=== PATIENT | female | born 1985 | race Two or more races ===

== ENCOUNTER 2020-04-03 16:03 | Observation (INO) | payer MEDICAID, OTHER ==
[~2020-04-03] VITALS: Ht 154.9 cm; Wt 75.4 kg
[2020-04-03] MEDS ORDERED: KETOROLAC 30 MG/1 ML IM ONE (16:30)
[2020-04-03 16:54] LABS: BASOPHILS % (AUTO) 0 % (0-1); EOSINOPHILS # (AUTO) 0.07 x10^3/uL (0-0.4); EOSINOPHILS % (AUTO) 1 % (1-7); LYMPHOCYTES # (AUTO) 0.64 x10^3/uL (1-3.4); LYMPHOCYTES % (AUTO) 6 % (22-44); MD NO; MEAN CORPUSCULAR HEMOGLOBIN 29.4 pg (27.0-34.8); MEAN CORPUSCULAR VOLUME 89.2 fL (80-100); MEAN PLATELET VOLUME 8.5 fL (7.4-10.4); MONOCYTES # (AUTO) 0.15 x10^3/uL (0.2-0.8); MONOCYTES % (AUTO) 1 % (2-9); NEUTROPHILS # (AUTO) 10.34 x10^3/uL (1.8-6.8); NEUTROPHILS % (AUTO) 92 % (42-75); PLATELET COUNT 266 x10^3/uL (130-400); RED BLOOD COUNT 5.44 x10^6/uL (3.82-5.3); RED CELL DISTRIBUTION WIDTH 13.1 % (9.6-15.2)
[2020-04-03 17:00] LABS: ALANINE AMINOTRANSFERASE 20 U/L (12-78); ALBUMIN 4.2 g/dL (3.4-5.0); ANION GAP 6 mmol/L (5-15); CALCIUM 9.8 mg/dL (8.5-10.1); CHLORIDE 104 mmol/L (98-107)
[2020-04-03 17:05] LABS: ALKALINE PHOSPHATASE 70 U/L (45-117); BILIRUBIN,TOTAL 0.5 mg/dL (0.2-1.0); CREATININE 1.29 mg/dL (0.55-1.02); TOTAL PROTEIN 8.6 g/dL (6.4-8.2)
[2020-04-03 17:08] LABS: MICROSCOPIC INDICATED
[2020-04-03] MEDS ORDERED: KETOROLAC 60 MG/2 ML ONE (17:16)
[2020-04-03] MEDS ORDERED: SODIUM CHLORIDE 0.9% 1,000 ML IV ONE (17:47)
[2020-04-03] MEDS ORDERED: SODIUM CHLORIDE FLUSH 10ML SYR IVF ONE (18:00)
[2020-04-03] MEDS ORDERED: ONDANSETRON 2MG/ML, 2ML IVPush ONE (18:00)
[2020-04-03] MEDS ORDERED: CEFTRIAXONE PMX 1GM/50ML 50 ML IV ONE (18:00)
[2020-04-03] MEDS ORDERED: MORPHINE SULFATE 4 MG/ML, 1ML IVPush PRN (18:00)
[2020-04-03] MEDS ORDERED: CEFTRIAXONE PMX 1GM/50ML 50 ML ONE (18:22)
[2020-04-03] MEDS ORDERED: ONDANSETRON 2MG/ML, 2ML ONE ×2 (18:23→19:31)
[2020-04-03] MEDS ORDERED: MORPHINE SULFATE 4 MG/ML, 1ML ONE (18:23)
--- NOTE | 2020-04-03 18:37 | NUR ---
PT UPDATED ON PLAN OF CARE. ERP AT BEDSIDE FOR RAPID COVID TEST COLLECTION. PT MEDICATED PER MAR. INSTRUCTED TO STRIP ALL CLOTHING AND JEWELRY ITEMS OFF, BESIDES GOWN AND MEDICAL EQUIPMENT, PROVIDED WITH A CUP FOR HER JEWELRY AND A BAG FOR HER BELONGINGS. BOYFRIEND AT BEDSIDE TO TAKE ITEMS HOME WITH HIM. REPORT TO OR, OR STATES THEY WILL BE DOWN TO GET PATIENT SHORTLY. PT DENIES ANY NEEDS, CALL LIGHT IN REACH.
[2020-04-03] MEDS ORDERED: CHLORHEXIDINE 15 ML UDC ONE (18:43)
[2020-04-03] MEDS ORDERED: SODIUM CHLORIDE 0.9% 1,000 ML IV SCH (18:51)
[2020-04-03] MEDS ORDERED: FENTANYL PF 100 MCG/2ML ONE ×2 (18:52→19:58)
[2020-04-03] MEDS ORDERED: MIDAZOLAM 1 MG/ML, 2ML ONE (18:52)
[2020-04-03] MEDS ORDERED: FENTANYL PF 100 MCG/2ML IV PRN (19:00)
[2020-04-03] MEDS ORDERED: hydrALAzine 20 MG/ML, 1ML IV PRN (19:00)
[2020-04-03] MEDS ORDERED: HALOPERIDOL 5 MG/ML IV PRN (19:00)
[2020-04-03] MEDS ORDERED: ZOLPIDEM 5MG TABLET PO PRN (19:00)
[2020-04-03] MEDS ORDERED: DIPHENHYDRAMINE 50 MG/ML, 1ML IVPush PRN (19:00)
[2020-04-03] MEDS ORDERED: DOCUSATE 100 MG CAPSULE PO PRN (19:00)
[2020-04-03] MEDS ORDERED: LABETALOL 5MG/ML, 20ML IV PRN (19:00)
[2020-04-03] MEDS ORDERED: hydrALAzine 20 MG/ML, 1ML IVPush PRN (19:00)
[2020-04-03] MEDS ORDERED: ONDANSETRON 2MG/ML, 2ML IVPush PRN (19:00)
[2020-04-03] MEDS ORDERED: HYDROmorphone 1 MG/ML, 1ML INJ IVPush PRN (19:00)
[2020-04-03] MEDS ORDERED: OXYcodone 5 MG/5 ML ORAL.SOL UDC PO PRN (19:00)
[2020-04-03] MEDS ORDERED: CYCLOBENZAPRINE 10 MG TABLET PO PRN (19:00)
[2020-04-03] MEDS ORDERED: MEPERIDINE/PF 25MG/0.5ML IVPush PRN (19:00)
[2020-04-03] MEDS ORDERED: PROMETHAZINE 25 MG/ML, 1ML IVPush PRN (19:00)
[2020-04-03] MEDS ORDERED: DEXAMETHASONE 4 MG/ML, 1ML ONE (19:31)
[2020-04-03] MEDS ORDERED: PROPOFOL 10 MG/ML, 20ML ONE (19:31)
[2020-04-03] MEDS ORDERED: CEFAZOLIN 1,000 MG ONE (19:31)
[2020-04-03] MEDS ORDERED: OXYcodone 5 MG/5 ML ORAL.SOL UDC ONE (19:58)
[2020-04-03] MEDS: morphine SULFATE 10 MG/ML, 1ML IVPush PRN (22:18)
[2020-04-03 23:37] VITALS: BP 130/75
[2020-04-04] MEDS: morphine SULFATE 10 MG/ML, 1ML IVPush PRN ×3 (01:02→07:37)
[2020-04-04 03:54] VITALS: BP 99/62
[2020-04-04 05:23] LABS: ANION GAP 6 mmol/L (5-15); CALCIUM 8.8 mg/dL (8.5-10.1); CHLORIDE 109 mmol/L (98-107); CREATININE 1.23 mg/dL (0.55-1.02)
[2020-04-04 05:33] LABS: MEAN CORPUSCULAR HEMOGLOBIN 29.5 pg (27.0-34.8); MEAN CORPUSCULAR HGB CONC 33.1 g/dL (32.4-35.8); MEAN CORPUSCULAR VOLUME 88.9 fL (80-100); MEAN PLATELET VOLUME 8.7 fL (7.4-10.4); PLATELET COUNT 254 x10^3/uL (130-400); RED BLOOD COUNT 4.77 x10^6/uL (3.82-5.3); RED CELL DISTRIBUTION WIDTH 13.5 % (9.6-15.2)
[2020-04-04 06:05] LABS: MD YES
[2020-04-04 06:07] LABS: <PLATELET ESTIMATE> ADEQUATE; <PLT MORPHOLOGY> NORMAL PLT MORPH; <RBC MORPHOLOGY> NORMAL; BAND#(MANUAL) 1.09 x10^3/uL; BANDS%(MANUAL) 7 % (0-7); LYMPH#(MANUAL) 0.47 x10^3/uL (1-3.4); LYMPHS% (MANUAL) 3 % (22-44); MONOS#(MANUAL) 0.31 x10^3/uL (0.3-2.7); MONOS% (MANUAL) 2 % (2-9); SEG#(MANUAL) 13.73 x10^3/uL (1.8-6.8); SEGS% (MANUAL) 88 % (42-75)
[2020-04-04 07:14] VITALS: BP 112/68
[2020-04-04] MEDS: OXYcodone IR 5MG TABLET PO PRN ×2 (10:09→16:15)
[2020-04-04] MEDS ORDERED: CEFD300C37 PO (14:06)
[2020-04-04] MEDS ORDERED: OXYC5TAB2 PEG (15:58)
[2020-04-04] MEDS ORDERED: CEFTRIAXONE PMX 1GM/50ML 50 ML IV SCH (18:00)
== END 2020-04-04 16:30 | disposition home or self-care (01) ==
LOC: OR 18:21 → EDIP 18:22 → INTOOBSV 18:22 → OR 18:44 → 4NE 20:40 → DCLOUNGE 04-04 16:21
PROVIDERS: ADMIT Internal Medicine; ATTEND Family Medicine
DX: N13.6 Pyonephrosis (principal); Z20.828 Contact with and (suspected) exposure to other viral communicable diseases; N20.2 Calculus of kidney with calculus of ureter; N39.0 Urinary tract infection, site not specified; G43.909 Migraine, unspecified, not intractable, without status migrainosus; D72.829 Elevated white blood cell count, unspecified; N17.9 Acute kidney failure, unspecified; E86.0 Dehydration; E66.9 Obesity, unspecified; R50.9 Fever, unspecified; Z79.899 Other long term (current) drug therapy; Z87.442 Personal history of urinary calculi; Z68.30 Body mass index [BMI] 30.0-30.9, adult; Z87.891 Personal history of nicotine dependence
CPT/HCPCS: 36415; 52005; 74018; 74176; 76000; 80048; 80053; 81001; 84703; 85025; 87077; 87086; 87186; 87635; 96361; 96365; 96372; 96375; 96376; 99285; C1769; C2617; G0378; J0696; J1100; J1885; J2250; J2270; J2405; J2704; J3010; J7030; J0690

== ENCOUNTER 2020-05-24 06:36 | Inpatient (IN) | payer MEDICAID ==
[~2020-05-24] VITALS: Ht 154.9 cm; Wt 77.8 kg
[~2020-05-24 06:36] MED LIST: CEFD300C37 PO; OXYC5TAB2 PEG
[2020-05-24] MEDS ORDERED: ONDANSETRON 2MG/ML, 2ML ONE ×2 (07:06→09:17)
[2020-05-24] MEDS ORDERED: KETOROLAC 30 MG/1 ML ONE (07:06)
--- NOTE | 2020-05-24 07:29 | NUR ---
PT AMBULATORY TO ROOM 17 W/ C/O R SIDE FLANK PAIN STARTED YESTERDAY AFTERNOON. PT STATES SHE HAS HX KIDNEY STONES W/ CURRENT STENT PLACEMENT. PT STATES SHE WAS GOING TO HAVE A PROCEDURE DONE FOR STONES ONCE HER INSURANCE KICKS IN FROM WORK. PT RESTING ON GURNEY. MEDICATED PER NOV. VSS.
[2020-05-24] MEDS ORDERED: ONDANSETRON 2MG/ML, 2ML IVPush ONE ×2 (07:30→09:00)
[2020-05-24] MEDS ORDERED: SODIUM CHLORIDE FLUSH 10ML SYR IVF ONE (07:30)
[2020-05-24] MEDS ORDERED: KETOROLAC 30 MG/1 ML IVPush ONE (07:30)
[2020-05-24 07:40] LABS: MEAN CORPUSCULAR HEMOGLOBIN 28.6 pg (27.0-34.8); MEAN CORPUSCULAR HGB CONC 32.6 g/dL (32.4-35.8); MEAN CORPUSCULAR VOLUME 87.7 fL (80-100); MEAN PLATELET VOLUME 8.1 fL (7.4-10.4); PLATELET COUNT 271 x10^3/uL (130-400); RED BLOOD COUNT 4.88 x10^6/uL (3.82-5.3); RED CELL DISTRIBUTION WIDTH 13.4 % (9.6-15.2)
[2020-05-24 07:45] LABS: MICROSCOPIC AUTO
[2020-05-24 07:52] LABS: ALBUMIN 3.6 g/dL (3.4-5.0); ANION GAP 8 mmol/L (5-15); CALCIUM 9.3 mg/dL (8.5-10.1); CHLORIDE 107 mmol/L (98-107); CREATININE 1.15 mg/dL (0.55-1.02)
[2020-05-24] MEDS ORDERED: MORPHINE SULFATE 4 MG/ML, 1ML ONE ×2 (08:12→09:17)
[2020-05-24] MEDS ORDERED: CEFTRIAXONE PMX 1GM/50ML 50 ML ONE (08:12)
[2020-05-24] MEDS: MORPHINE SULFATE 4 MG/ML, 1ML IVPush PRN ×2 (08:17→09:19)
--- NOTE | 2020-05-24 08:20 | NUR ---
BC X 2 DRAWN PRIOR TO START OF IV ABX.
[2020-05-24 08:23] LABS: MD YES
[2020-05-24 08:24] LABS: <PLATELET ESTIMATE> ADEQUATE; <PLT MORPHOLOGY> NORMAL PLT MORPH; <RBC MORPHOLOGY> NORMAL; BAND#(MANUAL) 1.75 x10^3/uL; BANDS%(MANUAL) 10 % (0-7); LYMPH#(MANUAL) 0.35 x10^3/uL (1-3.4); LYMPHS% (MANUAL) 2 % (22-44); MONOS#(MANUAL) 0.88 x10^3/uL (0.3-2.7); MONOS% (MANUAL) 5 % (2-9); SEG#(MANUAL) 14.53 x10^3/uL (1.8-6.8); SEGS% (MANUAL) 83 % (42-75)
[2020-05-24] MEDS ORDERED: TAMS-11 PO (08:24)
[2020-05-24] MEDS ORDERED: OXYB5TAB10 PO (08:24)
[2020-05-24] MEDS ORDERED: SODIUM CHLORIDE 0.9% 1,000ML IVBOLUS ONE (08:30)
--- NOTE | 2020-05-24 08:53 | NUR ---
PT CHART REVIEWED AND PLACED FOR RECHECK.
[2020-05-24] MEDS ORDERED: CEFTRIAXONE PMX 1GM/50ML 50 ML IV ONE ×2 (09:00→22:00)
--- NOTE | 2020-05-24 09:12 | NUR ---
PT RESTING ON ESTEFANI. KATLYN. VSS. STATES PAIN IMPROVED AFTER MEDICATED PER NOV.
--- NOTE | 2020-05-24 09:22 | NUR ---
PT MEDICATED PER EMAR. PT TOLERATED WELL.
--- NOTE | 2020-05-24 09:54 | NUR ---
REPORT GIVEN TO SHAWN CHAN.
--- NOTE | 2020-05-24 09:58 | NUR ---
PT REPORT FROM SHAWN WATERS. PT CARE TO BE ASSUMED.
--- NOTE | 2020-05-24 09:58 | NUR ---
TO CT PER ESTEFANI
--- NOTE | 2020-05-24 10:41 | NUR ---
PT REPORT TO SHAWN JUAN FOR ROOM 336.
[2020-05-24] MEDS: OXYcodone/APAP 5/325MG TABLET PO PRN ×2 (11:47→23:16)
[2020-05-24] MEDS ORDERED: hydrALAzine 20 MG/ML, 1ML IVPush PRN (12:00)
[2020-05-24] MEDS ORDERED: SODIUM CHLORIDE 0.9% 1,000 ML IV ONE (12:00)
[2020-05-24] MEDS ORDERED: LABETALOL 5MG/ML, 20ML IVPush PRN (12:00)
[2020-05-24] MEDS ORDERED: OXYcodone/APAP 5/325MG TABLET PO PRN (12:00)
[2020-05-24] MEDS ORDERED: PROMETHAZINE 25 MG/ML, 1ML IM PRN (12:00)
[2020-05-24] MEDS: HEPARIN 5,000 UNITS/ML, 1ML SQ SCH ×2 (12:00→20:00)
[2020-05-24 12:24] VITALS: BP 132/82
[2020-05-24] MEDS ORDERED: CEFTRIAXONE PMX 1GM/50ML 50 ML IV SCH (12:30)
[2020-05-24] MEDS: SODIUM CHLORIDE 0.9% 1,000 ML IV SCH (12:50)
[2020-05-24] MEDS: ACETAMINOPHEN 325 MG TABLET PO PRN (13:05)
[2020-05-24] MEDS: morphine SULFATE 10 MG/ML, 1ML IVPush PRN ×2 (13:47→22:08)
[2020-05-24 18:59] VITALS: BP 131/79
[2020-05-24] MEDS: OXYBUTYNIN CHLORIDE 5 MG TABLET PO SCH (22:08)
[2020-05-25 00:36] VITALS: BP 118/83
[2020-05-25] MEDS: SODIUM CHLORIDE 0.9% 1,000 ML IV SCH ×4 (01:00→22:27)
[2020-05-25] MEDS: HEPARIN 5,000 UNITS/ML, 1ML SQ SCH ×3 (02:58→20:00)
[2020-05-25] MEDS: morphine SULFATE 10 MG/ML, 1ML IVPush PRN ×3 (03:04→19:38)
[2020-05-25 03:09] VITALS: BP 129/85
[2020-05-25] MEDS: ACETAMINOPHEN 325 MG TABLET PO PRN ×2 (03:11→19:38)
[2020-05-25] MEDS: ONDANSETRON 2MG/ML, 2ML IVPush PRN ×2 (03:11→19:43)
[2020-05-25] MEDS: OXYcodone/APAP 5/325MG TABLET PO PRN ×3 (05:41→22:27)
[2020-05-25 05:50] LABS: ALANINE AMINOTRANSFERASE 15 U/L (12-78); ALBUMIN 2.9 g/dL (3.4-5.0); ANION GAP 8 mmol/L (5-15); CALCIUM 8.2 mg/dL (8.5-10.1); CHLORIDE 110 mmol/L (98-107)
[2020-05-25 05:52] LABS: ALKALINE PHOSPHATASE 51 U/L (45-117); BILIRUBIN,TOTAL 0.5 mg/dL (0.2-1.0); TOTAL PROTEIN 6.6 g/dL (6.4-8.2)
[2020-05-25 05:54] LABS: MEAN CORPUSCULAR HEMOGLOBIN 28.7 pg (27.0-34.8); MEAN CORPUSCULAR HGB CONC 32.8 g/dL (32.4-35.8); MEAN CORPUSCULAR VOLUME 87.5 fL (80-100); MEAN PLATELET VOLUME 8.4 fL (7.4-10.4); PLATELET COUNT 221 x10^3/uL (130-400); RED BLOOD COUNT 4.18 x10^6/uL (3.82-5.3); RED CELL DISTRIBUTION WIDTH 13.9 % (9.6-15.2)
[2020-05-25 06:20] LABS: MD YES
[2020-05-25 06:22] LABS: <PLATELET ESTIMATE> ADEQUATE; <PLT MORPHOLOGY> NORMAL PLT MORPH; <RBC MORPHOLOGY> NORMAL; BAND#(MANUAL) 0.32 x10^3/uL; BANDS%(MANUAL) 2 % (0-7); LYMPH#(MANUAL) 1.94 x10^3/uL (1-3.4); LYMPHS% (MANUAL) 12 % (22-44); MONOS#(MANUAL) 0.65 x10^3/uL (0.3-2.7); MONOS% (MANUAL) 4 % (2-9); SEG#(MANUAL) 13.28 x10^3/uL (1.8-6.8); SEGS% (MANUAL) 82 % (42-75)
[2020-05-25 08:12] VITALS: BP 105/72
[2020-05-25] MEDS: OXYBUTYNIN CHLORIDE 5 MG TABLET PO SCH ×2 (08:28→19:38)
[2020-05-25] MEDS: TAMSULOSIN 0.4 MG CAP.ER.24H PO SCH (08:28)
[2020-05-25] MEDS ORDERED: CEFTRIAXONE PMX 2GM/50ML 50 ML IV SCH (10:00)
[2020-05-25] MEDS: PIPERACILLIN/TAZO/PMX 3.375GM 50 ML IV SCH ×3 (10:27→22:15)
[2020-05-25] MEDS ORDERED: CHLORHEXIDINE 15 ML UDC MM ONE (14:30)
[2020-05-25] MEDS ORDERED: ACETAMINOPHEN 325 MG TABLET PO PRN ×2 (15:00→16:30)
[2020-05-25] MEDS ORDERED: ONDANSETRON 2MG/ML, 2ML IVPush PRN ×2 (15:00→16:30)
[2020-05-25] MEDS ORDERED: OXYcodone 5 MG/5 ML ORAL.SOL UDC PO PRN ×2 (15:00→16:30)
[2020-05-25] MEDS ORDERED: KETOROLAC 30 MG/1 ML IVPush PRN (15:00)
[2020-05-25] MEDS ORDERED: LABETALOL 5MG/ML, 20ML IV PRN ×2 (15:00→16:30)
[2020-05-25] MEDS ORDERED: METOCLOPRAMIDE 5 MG/ML, 2ML IVPush PRN (15:00)
[2020-05-25] MEDS ORDERED: METHOCARBAMOL 1,000 MG in DEXTROSE 5% 100 ML IV PRN (15:00)
[2020-05-25] MEDS ORDERED: HALOPERIDOL 5 MG/ML IV PRN (15:00)
[2020-05-25] MEDS ORDERED: HYDROmorphone 1 MG/ML, 1ML INJ IVPush PRN ×2 (15:00→16:30)
[2020-05-25] MEDS ORDERED: EPHEDRINE 50 MG/ML, 1ML IVPush PRN (15:00)
[2020-05-25] MEDS ORDERED: MEPERIDINE/PF 25MG/0.5ML IVPush PRN ×2 (15:00→16:30)
[2020-05-25] MEDS ORDERED: DIPHENHYDRAMINE 50 MG/ML, 1ML IVPush PRN ×2 (15:00→16:30)
[2020-05-25] MEDS ORDERED: EPHEDRINE 50 MG/ML, 1ML IM PRN (15:00)
[2020-05-25] MEDS ORDERED: MIDAZOLAM 1 MG/ML, 2ML IV PRN (15:00)
[2020-05-25] MEDS ORDERED: DIAZEPAM 5 MG/ML, 2ML IVPush PRN ×2 (15:00→16:30)
[2020-05-25] MEDS ORDERED: FENTANYL PF 100 MCG/2ML IV PRN ×2 (15:00→16:30)
[2020-05-25] MEDS ORDERED: LORazepam 2 MG/ML, 1ML IVPush PRN (15:00)
[2020-05-25] MEDS ORDERED: ALBUTEROL/IPRATROPIUM 2.5MG/0.5MG, 3 ML NPPB PRN (15:00)
[2020-05-25] MEDS ORDERED: hydrALAzine 20 MG/ML, 1ML IV PRN ×2 (15:00→16:30)
[2020-05-25] MEDS ORDERED: FENTANYL PF 100 MCG/2ML ONE (16:21)
[2020-05-25] MEDS ORDERED: MIDAZOLAM 1 MG/ML, 2ML ONE (16:21)
[2020-05-25] MEDS ORDERED: PROMETHAZINE 25 MG/ML, 1ML IVPush PRN (16:30)
[2020-05-25] MEDS ORDERED: PROPOFOL 10 MG/ML, 100ML IV ONE (16:42)
[2020-05-25 19:00] VITALS: BP 145/95
[2020-05-26 00:23] VITALS: BP 132/84
[2020-05-26] MEDS: HEPARIN 5,000 UNITS/ML, 1ML SQ SCH ×3 (03:34→20:00)
[2020-05-26] MEDS: PIPERACILLIN/TAZO/PMX 3.375GM 50 ML IV SCH (03:53)
[2020-05-26] MEDS: OXYcodone/APAP 5/325MG TABLET PO PRN ×3 (03:58→20:39)
[2020-05-26 06:20] LABS: BASOPHILS # (AUTO) 0.05 x10^3/uL (0-0.1); BASOPHILS % (AUTO) 1 % (0-1); EOSINOPHILS # (AUTO) 0.25 x10^3/uL (0-0.4); EOSINOPHILS % (AUTO) 3 % (1-7); LYMPHOCYTES # (AUTO) 1.13 x10^3/uL (1-3.4); LYMPHOCYTES % (AUTO) 14 % (22-44); MD NO; MEAN CORPUSCULAR HEMOGLOBIN 29.5 pg (27.0-34.8); MEAN CORPUSCULAR HGB CONC 33.6 g/dL (32.4-35.8); MEAN CORPUSCULAR VOLUME 87.7 fL (80-100); MEAN PLATELET VOLUME 8.7 fL (7.4-10.4); MONOCYTES # (AUTO) 0.57 x10^3/uL (0.2-0.8); MONOCYTES % (AUTO) 7 % (2-9); NEUTROPHILS # (AUTO) 6.18 x10^3/uL (1.8-6.8); NEUTROPHILS % (AUTO) 76 % (42-75); PLATELET COUNT 184 x10^3/uL (130-400); RED BLOOD COUNT 3.55 x10^6/uL (3.82-5.3); RED CELL DISTRIBUTION WIDTH 13.9 % (9.6-15.2)
[2020-05-26 06:31] LABS: ALBUMIN 2.5 g/dL (3.4-5.0); ANION GAP 4 mmol/L (5-15); CALCIUM 8.1 mg/dL (8.5-10.1); CHLORIDE 111 mmol/L (98-107)
[2020-05-26 06:35] LABS: ALANINE AMINOTRANSFERASE 21 U/L (12-78); ALKALINE PHOSPHATASE 48 U/L (45-117); BILIRUBIN,TOTAL 0.5 mg/dL (0.2-1.0); CREATININE 1.14 mg/dL (0.55-1.02); TOTAL PROTEIN 5.9 g/dL (6.4-8.2)
[2020-05-26 07:30] VITALS: BP 129/86
[2020-05-26] MEDS: SODIUM CHLORIDE 0.9% 1,000 ML IV SCH ×2 (08:29→11:51)
[2020-05-26] MEDS: TAMSULOSIN 0.4 MG CAP.ER.24H PO SCH (08:29)
[2020-05-26] MEDS: OXYBUTYNIN CHLORIDE 5 MG TABLET PO SCH ×2 (08:30→20:37)
[2020-05-26] MEDS: ONDANSETRON 2MG/ML, 2ML IVPush PRN (08:34)
[2020-05-26] MEDS ORDERED: CEFTRIAXONE PMX 1GM/50ML 50 ML IV SCH (10:00)
[2020-05-26 12:15] VITALS: BP 152/105
[2020-05-26 20:07] VITALS: BP 160/116
[2020-05-26 20:32] VITALS: BP 163/83
[2020-05-27] MEDS: SODIUM CHLORIDE 0.9% 1,000 ML IV SCH (01:09)
[2020-05-27 02:22] VITALS: BP_SYST 103; BP_SYST 150; BP_DIAS 63; BP_DIAS 90
[2020-05-27] MEDS: OXYcodone/APAP 5/325MG TABLET PO PRN ×2 (02:37→09:16)
[2020-05-27] MEDS: HEPARIN 5,000 UNITS/ML, 1ML SQ SCH (03:29)
[2020-05-27 06:10] LABS: ANION GAP 8 mmol/L (5-15); CHLORIDE 111 mmol/L (98-107)
[2020-05-27 06:14] LABS: ALANINE AMINOTRANSFERASE 32 U/L (12-78); ALKALINE PHOSPHATASE 63 U/L (45-117); BILIRUBIN,TOTAL 0.4 mg/dL (0.2-1.0); CREATININE 0.93 mg/dL (0.55-1.02); TOTAL PROTEIN 6.9 g/dL (6.4-8.2)
[2020-05-27 06:20] LABS: BASOPHILS # (AUTO) 0.04 x10^3/uL (0-0.1); BASOPHILS % (AUTO) 1 % (0-1); EOSINOPHILS # (AUTO) 0.38 x10^3/uL (0-0.4); EOSINOPHILS % (AUTO) 7 % (1-7); LYMPHOCYTES # (AUTO) 1.26 x10^3/uL (1-3.4); LYMPHOCYTES % (AUTO) 22 % (22-44); MD NO; MEAN CORPUSCULAR HGB CONC 33.2 g/dL (32.4-35.8); MEAN CORPUSCULAR VOLUME 87.3 fL (80-100); MEAN PLATELET VOLUME 9.2 fL (7.4-10.4); MONOCYTES # (AUTO) 0.46 x10^3/uL (0.2-0.8); MONOCYTES % (AUTO) 8 % (2-9); NEUTROPHILS # (AUTO) 3.62 x10^3/uL (1.8-6.8); NEUTROPHILS % (AUTO) 63 % (42-75); PLATELET COUNT 257 x10^3/uL (130-400); RED BLOOD COUNT 3.97 x10^6/uL (3.82-5.3); RED CELL DISTRIBUTION WIDTH 14.1 % (9.6-15.2)
[2020-05-27 06:33] VITALS: BP 127/80
[2020-05-27] MEDS ORDERED: SULFAMETH./TRIMETHOPRIM DS 800MG/160MG TABLET PO SCH (09:00)
[2020-05-27] MEDS: OXYBUTYNIN CHLORIDE 5 MG TABLET PO SCH (09:13)
[2020-05-27] MEDS: TAMSULOSIN 0.4 MG CAP.ER.24H PO SCH (09:13)
[2020-05-27] MEDS ORDERED: OXYC-302 PO (11:48)
[2020-05-27] MEDS ORDERED: ONDA4TAB7 PO (11:48)
[2020-05-27] MEDS ORDERED: Sulfameth./Trimethoprim Ds PO (11:48)
[2020-05-27 12:23] VITALS: BP 149/94
== END 2020-05-27 14:05 | disposition home or self-care (01) | DRG 854 ==
LOC: ED 08:33 → EDIP 08:55 → 3N 10:47
PROVIDERS: ADMIT Family Medicine; ATTEND Internal Medicine
PROC: 0TC68ZZ Extirpation of Matter from Right Ureter, Via Natural or Artificial Opening Endoscopic (ICD-10-PCS; 2020-05-25)
PROC: 0TP98DZ Removal of Intraluminal Device from Ureter, Via Natural or Artificial Opening Endoscopic (ICD-10-PCS; 2020-05-25)
PROC: 0T768DZ Dilation of Right Ureter with Intraluminal Device, Via Natural or Artificial Opening Endoscopic (ICD-10-PCS; principal; 2020-05-25 15:00)
DX: A41.51 Sepsis due to Escherichia coli [E. coli] (principal); N13.6 Pyonephrosis; N17.9 Acute kidney failure, unspecified; Z20.828 Contact with and (suspected) exposure to other viral communicable diseases; Z83.3 Family history of diabetes mellitus; N81.10 Cystocele, unspecified
CPT/HCPCS: 36415; 74018; 76000; 76770; 80048; 80053; 81001; 82040; 82360; 83036; 83605; 84145; 84703; 85025; 87040; 87077; 87086; 87186; 87635; 88300; G0378; J0696; J1885; J2250; J2405; J2543; J2704; J3010; C1769; C2617; J2270; J7030

== ENCOUNTER 2021-06-03 18:21 | Emergency (ER) | payer MEDICAID ==
[~2021-06-03] VITALS: Ht 154.9 cm; Wt 69.6 kg
[~2021-06-03 18:21] MED LIST changes: +ONDA4TAB7 PO; +OXYB5TAB10 PO; +OXYC1TAB12 PO; +Sulfameth./Trimethoprim Ds PO; +TAMS-11 PO
[2021-06-03 18:36] VITALS: BP 159/90
--- NOTE | 2021-06-03 18:43 | NUR ---
Patient given discharge instructions and they have confirmed that they understand the instructions. Patient ambulatory with steady gait.
== END 2021-06-03 19:12 | disposition home or self-care (01) ==
LOC: ED 19:03
DX: U07.1 COVID-19 (principal); B34.9 Viral infection, unspecified; I10 Essential (primary) hypertension
CPT/HCPCS: 99283; U0003; U0005